=== PATIENT | male | born 1985 | race Caucasian/White ===

== ENCOUNTER 2017-07-01 11:13 | Emergency (ER) | payer OTHER ==
[2017-07-01 11:52] LABS: Anion Gap 13 mmol/L (10-20); BUN (Urea Nitrogen) 12 mg/dL (8.9-20.6); Calc. Creatinine Clearance 0 mL/min (70-130); Calcium 9.6 mg/dL (7.8-10.44); Carbon Dioxide 25 mmol/L (22-29); Chloride 106 mmol/L (98-107); Estimated GFR-MDRD Greater than 90; Glucose 97 mg/dL (70-105); Potassium 3.8 mmol/L (3.5-5.1); Sodium 140 mmol/L (136-145)
[2017-07-01 11:58] LABS: #Basophils 0.1 thou/uL (0.0-0.2); #Eosinphils 0.1 thou/uL (0.0-0.7); #Lymphocytes 1.6 thou/uL (1.20-3.40); #Monocytes 0.7 thou/uL (0.11-0.59); #Neutrophils 3.6 thou/uL (1.40-6.50); %Basophils 1.6 % (0.0-1.0); %Eosinophils 1.6 % (0.0-10.0); %Lymphocytes 25.8 % (21.0-51.0); %Monocytes 11.9 % (0.0-10.0); %Neutrophils 59.1 % (42.0-75.0); CKMB 0.7 ng/mL (0-6.6); Hemoglobin 15.9 g/dL (14.0-18.0); Mean Corpuscular HGB CONC 34.8 g/dL (32.0-36.0); Mean Corpuscular Hemoglobin 29.5 pg (27.0-31.0); Mean Corpuscular Volume 84.7 fl (80.0-94.0); Mean Platelet Volume 7.7 fL (7.4-10.4); Platelet Count 266 thou/uL (130-400); RBC Distribution Width 11.7 % (11.5-14.5); Troponin I Less than 0.010 ng/mL (< 0.028); White Blood Cell (WBC) Count 6.1 thou/uL (4.8-10.8)
--- NOTE | 2017-07-01 12:05 | RAD ---
CHEST 1 VIEW: Date: 07/01/17 HISTORY: 32-year-old male with history of chest pain. FINDINGS: Monitor leads overlie the chest. Heart size is within normal limits. The lungs are clear. No pneumoni a, edema, or pleural effusion, or other acute intrathoracic disease. IMPRESSION: Unremarkable chest 1 view. POS: [facility]
== END 2017-07-01 12:46 | disposition home or self-care (01) ==
LOC: SCSER 11:13
DX: R00.2 Palpitations (principal); F17.220 Nicotine dependence, chewing tobacco, uncomplicated
CPT/HCPCS: 71045; 80048; 82553; 84484; 85025; 85379; 93005; 96360